=== PATIENT | female | born 1965 | race Caucasian/White ===

== ENCOUNTER 2024-02-10 23:01 | Emergency (ER) | payer OTHER ==
[~2024-02-10] VITALS: Ht 160 cm; Wt 74.8 kg
[2024-02-12] MEDS ORDERED: ATOR40TA PO (17:40)
[2024-02-12] MEDS ORDERED: EUTHYROX50 MCG PO (17:40)
[2024-02-12] MEDS ORDERED: AMLO10 (17:40)
[2024-02-12] MEDS ORDERED: Robaxin750 MG (17:41)
[2024-02-12] MEDS ORDERED: ASPI81CH (17:41)
[2024-02-12] MEDS ORDERED: SERT50 (17:41)
== END 2024-02-11 00:22 | disposition home or self-care (01) ==
LOC: ER 23:01
DX: Z00.00 Encounter for general adult medical examination without abnormal findings (principal)
CPT/HCPCS: 99282

== ENCOUNTER 2024-02-12 16:52 | Observation (INO) | payer OTHER ==
[~2024-02-12] VITALS: Ht 160 cm; Wt 74.8 kg
[2024-02-12 17:27] LABS: BASOPHILS ABSOLUTE AUTO 0.08 K/mm3 (0.00-0.23); BASOPHILS PERCENT AUTO 1 % (0-2); EOSINOPHILS ABSOLUTE AUTO 0.07 K/mm3 (0.00-0.68); EOSINOPHILS PERCENT AUTO 1 % (0-6); Hematocrit 32.9 % (33.0-51.0); Hemoglobin 10.9 g/dL (11.5-16.0); IMMATURE GRAN ABSOLUTE AUTO 0.03 K/mm3 (0.00-0.10); IMMATURE GRAN PERCENT AUTO 0 % (0-1); LYMPHOCYTES ABSOLUTE AUTO 1.58 K/mm3 (0.84-5.20); LYMPHOCYTES PERCENT AUTO 20 % (21-46); MONOCYTES PERCENT AUTO 5 % (4-13); Mean Corpuscular HGB 29.7 pg (26.0-34.0); Mean Corpuscular HGB Conc 33.1 g/dL (31.5-36.5); Mean Corpuscular Volume 90 fL (80-100); Mean Platelet Volume 10.3 fL (9.1-12.4); NEUTROPHILS ABSOLUTE AUTO 5.75 K/mm3 (1.96-9.15); NEUTROPHILS PERCENT AUTO 73 % (41-73); Platelet Count 261 K/mm3 (150-400); RDW Coefficient Variation 14.4 % (11.7-14.2); RDW Standard Deviation 47.3 fL (35.1-46.3); Red Blood Cell Count 3.67 M/mm3 (3.80-5.20); White Blood Cell Count 7.91 K/mm3 (4.00-11.30)
[2024-02-12 17:35] LABS: Source, Urine Clean Catch
[2024-02-12 17:38] LABS: Appearance, Urine Clear (Clear); Bilirubin, Urine Neg (Neg); Blood, Urine Neg (Neg); Color, Urine Yellow (P-Yellow); Glucose Qualitative, Urine Neg (Neg); Ketones, Urine Neg (Neg); Leukocyte Esterase, Urine 1+ (Neg); Nitrite, Urine Neg (Neg); Protein, Urine 1+ (Neg); Urobilinogen, Urine NORM (Normal)
[2024-02-12] MEDS ORDERED: AMLO10 PO (17:40)
[2024-02-12] MEDS ORDERED: ATOR40TA PO (17:40)
[2024-02-12] MEDS ORDERED: EUTHYROX50 MCG PO (17:40)
[2024-02-12] MEDS ORDERED: SERT50 PO (17:41)
[2024-02-12] MEDS ORDERED: Robaxin750 MG PO (17:41)
[2024-02-12] MEDS ORDERED: ASPI81CH PO (17:41)
[2024-02-12 17:47] LABS: Bacteria Many /hpf; Red Blood Cells, Urine 0-2 /hpf (0-2); Squamous Epithelial Cells Few /hpf (Few)
[2024-02-12 17:50] LABS: U Amphetamine Screen Not Detected; U Barbituate Screen Not Detected; U Benzodiazapine Screen Not Detected; U Buprenorphine Screen Not Detected; U Cannabinoids Screen Not Detected; U Cocaine Screen Not Detected; U Methadone Screen Not Detected; U Methamphetamine Screen Not Detected; U Opiates Screen Not Detected; U Oxycodone Screen Not Detected; U Phencyclidine Screen Not Detected
[2024-02-12 18:09] LABS: Acetaminophen, Random <2.0 ug/mL (10.0-30.0); Alanine Aminotransfer (ALT/SGP 38 U/L (12-78); Albumin, Blood 3.4 g/dL (3.4-5.0); Alk Phos 70 U/L (50-136); Anion Gap 13 mmol/L (3-11); Aspartate Aminotrans (AST/SGOT 35 U/L (12-37); Bilirubin, Total 0.5 mg/dL (0.1-1.0); Blood Urea Nitrogen 24 mg/dL (8-24); Bun/Creatinine Ratio 26.3 (12.0-20.0); CO2, Blood 20 mmol/L (21-32); Calcium, Blood 8.9 mg/dL (8.5-10.1); Chloride, Blood 114 mmol/L (98-108); Creatinine, Blood 0.91 mg/dL (0.40-1.00); Ethanol (Alcohol), Blood, Med <3 mg/dL; Globulin, Blood 3.3 g/dL (2.2-4.0); Glomerular Filtration Rate 74 (60-); Glucose, Blood 107 mg/dL (70-99); Potassium, Blood 3.5 mmol/L (3.5-5.5); Sodium, Blood 143 mmol/L (136-145); Total Protein, Blood 6.7 g/dL (6.4-8.2)
--- NOTE | 2024-02-14 10:23 | NUR ---
"Spiritual Care | Pt. Request Responded to the Pts. request for spiritual care. Pt. welcomed my visit, but displayed evidence of strong emotion. Pt. asked questions about the implications of suicide as it pertains to God. Listened with patient interest, empathy and a calming presence. Througout the visit the Pt. displayed waves of emotion as she shared a very sad and tragic life story. Considered matters of trace and belief. Pt. welcomed prayer so I prayed with Pt. Will remain available to Pt. while she is in our care."
[2024-02-14] MEDS ORDERED: OLANZapine ODT 10 MG Tab MM PRN (16:50)
[2024-02-14] MEDS ORDERED: HydrOXYzine Pamoate 50 MG Cap PO PRN (16:50)
[2024-02-14] MEDS ORDERED: QUEtiapine Fumarate 25 MG Tab PO PRN (16:50)
[2024-02-14] MEDS ORDERED: FLU VACC TS2024-25(6MOS UP)/PF 45 MCG/0.5 ML SYRINGE IM ONE (16:50)
[2024-02-14] MEDS ORDERED: Acetaminophen 325 MG TABLET PO PRN (16:55)
[2024-02-14] MEDS ORDERED: Ibuprofen 600 MG Tab PO PRN (16:55)
[2024-02-14] MEDS ORDERED: Melatonin 3 MG Tab PO PRN (16:55)
[2024-02-14] MEDS ORDERED: Aluminum Hydroxide 320MG/5ML 473 ML PO PRN (16:55)
[2024-02-14] MEDS ORDERED: Mirtazapine 15 MG Tab PO PRN (16:55)
[2024-02-14] MEDS ORDERED: TRAZ50 PO (18:37)
[2024-02-15] MEDS ORDERED: Multivitamins 1 Tab PO SCH (09:00)
[2024-02-17 23:59] LABS: AMITRIPTYLINE, QUANT, URN <100 ng/mL; CLOMIPRAMINE QUANT, URN <200 ng/mL; DESIPRAMINE QUANT, URN <100 ng/mL; DOXEPIN QUANT, URN <100 ng/mL; IMIPRAMINE QUANT, URN <100 ng/mL; NORCLOMIPRAMINE QUANT, URN <200 ng/mL; NORDOXEPIN QUANT, URN <100 ng/mL; NORTRIPTYLINE, QUANT, URN <100 ng/mL; PROTRIPTYLINE QUANT, URN <100 ng/mL
== END 2024-02-14 17:35 ==
LOC: ER 16:52 → EOR 16:53
PROVIDERS: ADMIT Emergency Medicine
DX: F32.A Depression, unspecified (principal); T43.212A Poisoning by selective serotonin and norepinephrine reuptake inhibitors, intentional self-harm, initial encounter; Z79.899 Other long term (current) drug therapy; Z86.73 Personal history of transient ischemic attack (TIA), and cerebral infarction without residual deficits; Z59.00 Homelessness unspecified
CPT/HCPCS: 80053; 80320; 81001; 85025; 93005; 93010; 94660; 94762; 99285-25; G0378; G0480; G0481

== ENCOUNTER 2024-05-03 15:26 | Observation (INO) | payer OTHER ==
[~2024-05-03] VITALS: Ht 160 cm; Wt 77.1 kg
[~2024-05-03 15:26] MED LIST: AMLO10 PO; ASPI81CH PO; ATOR40TA PO; EUTHYROX50 MCG PO; Robaxin750 MG PO; SERT50 PO; TRAZ50 PO
[2024-05-03 17:02] LABS: BASOPHILS ABSOLUTE AUTO 0.06 K/mm3 (0.00-0.23); BASOPHILS PERCENT AUTO 1 % (0-2); EOSINOPHILS ABSOLUTE AUTO 0.14 K/mm3 (0.00-0.68); EOSINOPHILS PERCENT AUTO 2 % (0-6); Hematocrit 36.5 % (33.0-51.0); Hemoglobin 12.3 g/dL (11.5-16.0); IMMATURE GRAN ABSOLUTE AUTO 0.02 K/mm3 (0.00-0.10); IMMATURE GRAN PERCENT AUTO 0 % (0-1); LYMPHOCYTES ABSOLUTE AUTO 2.64 K/mm3 (0.84-5.20); LYMPHOCYTES PERCENT AUTO 40 % (21-46); MONOCYTES ABSOLUTE AUTO 0.65 K/mm3 (0.16-1.47); MONOCYTES PERCENT AUTO 10 % (4-13); Mean Corpuscular HGB 29.4 pg (26.0-34.0); Mean Corpuscular HGB Conc 33.7 g/dL (31.5-36.5); Mean Corpuscular Volume 87 fL (80-100); Mean Platelet Volume 10.6 fL (9.1-12.4); NEUTROPHILS ABSOLUTE AUTO 3.16 K/mm3 (1.96-9.15); NEUTROPHILS PERCENT AUTO 47 % (41-73); Platelet Count 297 K/mm3 (150-400); RDW Coefficient Variation 12.8 % (11.7-14.2); RDW Standard Deviation 40.6 fL (35.1-46.3); Red Blood Cell Count 4.19 M/mm3 (3.80-5.20); White Blood Cell Count 6.67 K/mm3 (4.00-11.30)
[2024-05-03 17:13] LABS: Acetaminophen, Random <2.0 ug/mL (10.0-30.0); Alanine Aminotransfer (ALT/SGP 36 U/L (12-78); Albumin/Globulin Ratio 1.1 (0.8-1.8); Alk Phos 80 U/L (50-136); Anion Gap 10 mmol/L (3-11); Aspartate Aminotrans (AST/SGOT 22 U/L (12-37); Bilirubin, Total 0.4 mg/dL (0.1-1.0); Blood Urea Nitrogen 22 mg/dL (8-24); Bun/Creatinine Ratio 24.4 (12.0-20.0); CO2, Blood 25 mmol/L (21-32); Calcium, Blood 9.3 mg/dL (8.5-10.1); Chloride, Blood 109 mmol/L (98-108); Ethanol (Alcohol), Blood, Med <3 mg/dL; Globulin, Blood 3.6 g/dL (2.2-4.0); Glomerular Filtration Rate 75 (60-); Glucose, Blood 104 mg/dL (70-99); Potassium, Blood 3.9 mmol/L (3.5-5.5); Salicylate 2.7 mg/dL (2.8-20.0); Sodium, Blood 140 mmol/L (136-145); Total Protein, Blood 7.6 g/dL (6.4-8.2)
[2024-05-03 19:02] LABS: Source, Urine Clean Catch
[2024-05-03 19:12] LABS: Appearance, Urine Clear (Clear); Bilirubin, Urine Neg (Neg); Blood, Urine Neg (Neg); Color, Urine Yellow (P-Yellow); Glucose Qualitative, Urine Neg (Neg); Ketones, Urine Neg (Neg); Leukocyte Esterase, Urine 1+ (Neg); Nitrite, Urine Neg (Neg); Protein, Urine Neg (Neg); Specific Gravity, Urine 1.025 (1.003-1.022); Urobilinogen, Urine NORM (Normal)
[2024-05-03 19:19] LABS: Bacteria Rare /hpf; Red Blood Cells, Urine Not Seen /hpf (0-2); Squamous Epithelial Cells Few /hpf (Few)
[2024-05-03 19:23] LABS: U Amphetamine Screen Not Detected; U Barbituate Screen Not Detected; U Benzodiazapine Screen Not Detected; U Buprenorphine Screen Not Detected; U Cannabinoids Screen Not Detected; U Cocaine Screen Not Detected; U Methadone Screen Not Detected; U Methamphetamine Screen Not Detected; U Opiates Screen Not Detected; U Oxycodone Screen Not Detected; U Phencyclidine Screen Not Detected
[2024-05-03] MEDS ORDERED: Acetaminophen 325 MG TABLET PO PRN (19:35)
[2024-05-03] MEDS ORDERED: TraZODone HCl 50 MG Tab PO SCH (21:00)
[2024-05-03 21:13] LABS: Influenza A, PCR NEGATIVE (NEGATIVE); Influenza B, PCR NEGATIVE (NEGATIVE); Resp Syncytial Virus, PCR NEGATIVE (NEGATIVE); SARS-Cov-2 (COVID-19) PCR, MMC NEGATIVE (NEGATIVE)
[2024-05-04] MEDS ORDERED: Levothyroxine Sodium 100 MCG Vial IV SCH (06:00)
[2024-05-04] MEDS ORDERED: Aspirin 81 MG Chew PO SCH (09:00)
[2024-05-04] MEDS ORDERED: AmLODIPine Besylate 5 MG Tab PO SCH (09:00)
[2024-05-04] MEDS ORDERED: Atorvastatin 40 MG Tab PO SCH (09:00)
[2024-05-04] MEDS ORDERED: Sertraline HCl 100 MG Tab PO SCH (09:00)
[2024-05-04] MEDS ORDERED: Levothyroxine Sodium 0.05 MG Tab PO SCH (11:35)
== END 2024-05-04 13:22 | disposition home or self-care (01) ==
LOC: ER 15:26 → EOR 15:27
PROVIDERS: ADMIT Student in an Organized Health Care Education/Training Program
DX: F33.2 Major depressive disorder, recurrent severe without psychotic features (principal); R45.851 Suicidal ideations; Z79.82 Long term (current) use of aspirin; Z79.890 Hormone replacement therapy; Z79.899 Other long term (current) drug therapy; Z86.73 Personal history of transient ischemic attack (TIA), and cerebral infarction without residual deficits
CPT/HCPCS: 0241U; 80053; 80320; 81001; 81025; 85025; 93005; 93010; 99285-25; A9270; G0378; G0480

== ENCOUNTER 2024-05-14 15:45 | Observation (INO) | payer OTHER ==
[~2024-05-14] VITALS: Ht 162.6 cm; Wt 77.1 kg
[2024-05-14 17:17] LABS: BASOPHILS ABSOLUTE AUTO 0.08 K/mm3 (0.00-0.23); BASOPHILS PERCENT AUTO 1 % (0-2); EOSINOPHILS ABSOLUTE AUTO 0.13 K/mm3 (0.00-0.68); EOSINOPHILS PERCENT AUTO 2 % (0-6); Hematocrit 34.7 % (33.0-51.0); Hemoglobin 11.9 g/dL (11.5-16.0); IMMATURE GRAN ABSOLUTE AUTO 0.02 K/mm3 (0.00-0.10); IMMATURE GRAN PERCENT AUTO 0 % (0-1); LYMPHOCYTES ABSOLUTE AUTO 2.75 K/mm3 (0.84-5.20); LYMPHOCYTES PERCENT AUTO 34 % (21-46); MONOCYTES ABSOLUTE AUTO 0.73 K/mm3 (0.16-1.47); MONOCYTES PERCENT AUTO 9 % (4-13); Mean Corpuscular HGB 29.5 pg (26.0-34.0); Mean Corpuscular HGB Conc 34.3 g/dL (31.5-36.5); Mean Corpuscular Volume 86 fL (80-100); Mean Platelet Volume 10.2 fL (9.1-12.4); NEUTROPHILS ABSOLUTE AUTO 4.48 K/mm3 (1.96-9.15); NEUTROPHILS PERCENT AUTO 55 % (41-73); Platelet Count 284 K/mm3 (150-400); RDW Coefficient Variation 12.7 % (11.7-14.2); RDW Standard Deviation 39.8 fL (35.1-46.3); Red Blood Cell Count 4.04 M/mm3 (3.80-5.20); White Blood Cell Count 8.19 K/mm3 (4.00-11.30)
[2024-05-14] MEDS ORDERED: LISINOPRIL-HCT1 EACH PO (17:20)
[2024-05-14] MEDS ORDERED: HYDPAM50 PO (17:20)
[2024-05-14 17:41] LABS: Acetaminophen, Random <2.0 ug/mL (10.0-30.0); Alanine Aminotransfer (ALT/SGP 41 U/L (12-78); Albumin, Blood 3.9 g/dL (3.4-5.0); Alk Phos 86 U/L (50-136); Anion Gap 11 mmol/L (3-11); Aspartate Aminotrans (AST/SGOT 30 U/L (12-37); Bilirubin, Total 0.4 mg/dL (0.1-1.0); Blood Urea Nitrogen 31 mg/dL (8-24); Bun/Creatinine Ratio 25.2 (12.0-20.0); CO2, Blood 23 mmol/L (21-32); Calcium, Blood 9.9 mg/dL (8.5-10.1); Chloride, Blood 110 mmol/L (98-108); Creatinine, Blood 1.23 mg/dL (0.40-1.00); Ethanol (Alcohol), Blood, Med <3 mg/dL; Globulin, Blood 3.8 g/dL (2.2-4.0); Glomerular Filtration Rate 51 (60-); Glucose, Blood 104 mg/dL (70-99); Potassium, Blood 3.8 mmol/L (3.5-5.5); Sodium, Blood 140 mmol/L (136-145); Total Protein, Blood 7.7 g/dL (6.4-8.2)
[2024-05-14 18:29] LABS: Source, Urine Clean Catch
[2024-05-14 18:32] LABS: Appearance, Urine Clear (Clear); Bilirubin, Urine Neg (Neg); Blood, Urine Neg (Neg); Color, Urine Yellow (P-Yellow); Glucose Qualitative, Urine Neg (Neg); Ketones, Urine Neg (Neg); Leukocyte Esterase, Urine 2+ (Neg); Nitrite, Urine Neg (Neg); Protein, Urine 1+ (Neg); Specific Gravity, Urine 1.025 (1.003-1.022); Urobilinogen, Urine NORM (Normal)
[2024-05-14 18:47] LABS: Amorphous Light (0-Heavy); Bacteria Mod /hpf; Hyaline Casts 25-50 /lpf (0-2); Red Blood Cells, Urine 0-2 /hpf (0-2); Squamous Epithelial Cells Few /hpf (Few)
[2024-05-14 18:49] LABS: U Amphetamine Screen Not Detected; U Barbituate Screen Not Detected; U Benzodiazapine Screen Not Detected; U Buprenorphine Screen Not Detected; U Cannabinoids Screen Not Detected; U Cocaine Screen Not Detected; U Methadone Screen Not Detected; U Methamphetamine Screen Not Detected; U Opiates Screen Not Detected; U Oxycodone Screen Not Detected; U Phencyclidine Screen Not Detected
[2024-05-14] MEDS ORDERED: Atorvastatin 10 MG Tab PO SCH (21:00)
[2024-05-14] MEDS ORDERED: TraZODone HCl 50 MG Tab PO SCH (21:00)
[2024-05-14] MEDS ORDERED: Acetaminophen 325 MG TABLET PO PRN (22:20)
[2024-05-15] MEDS ORDERED: Levothyroxine Sodium 0.05 MG Tab PO SCH (06:00)
[2024-05-15] MEDS ORDERED: Sertraline HCl 50 MG Tab PO SCH (09:00)
[2024-05-15] MEDS ORDERED: Aspirin 81 MG Chew PO SCH (09:00)
[2024-05-15] MEDS ORDERED: AmLODIPine Besylate 5 MG Tab PO SCH (09:00)
[2024-05-15] MEDS ORDERED: HyDROXyzine HCl 25 MG Tab PO SCH (09:00)
[2024-05-15 10:58] LABS: Influenza A, PCR NEGATIVE (NEGATIVE); Influenza B, PCR NEGATIVE (NEGATIVE); Resp Syncytial Virus, PCR NEGATIVE (NEGATIVE); SARS-Cov-2 (COVID-19) PCR, MMC NEGATIVE (NEGATIVE)
== END 2024-05-15 13:10 | disposition other institution (70) ==
LOC: ER 15:45 → EOR 15:46
PROVIDERS: Physician Assistant; ADMIT Student in an Organized Health Care Education/Training Program
DX: F32.9 Major depressive disorder, single episode, unspecified (principal); R45.851 Suicidal ideations; Z79.899 Other long term (current) drug therapy; Z86.73 Personal history of transient ischemic attack (TIA), and cerebral infarction without residual deficits
CPT/HCPCS: 0241U; 80053; 80320; 81001; 85025; 87086; 93005; 93010; 99285-25; A9270; G0378; G0480

== ENCOUNTER 2024-05-15 09:22 | Inpatient (IN) | payer OTHER ==
[~2024-05-15 09:22] MED LIST changes: +HYDPAM50 PO; +LISINOPRIL-HCT1 EACH PO
[2024-05-15] MEDS ORDERED: FLU VACC TS2024-25(6MOS UP)/PF 45 MCG/0.5 ML SYRINGE IM SCH (13:30)
[2024-05-15] MEDS ORDERED: Melatonin 3 MG Tab PO PRN (13:35)
[2024-05-15] MEDS ORDERED: Calcium Carbonate 500 MG Tab Chew PO PRN (13:35)
[2024-05-15] MEDS ORDERED: Acetaminophen 325 MG TABLET PO PRN (13:35)
[2024-05-15] MEDS ORDERED: Polyethylene Glycol 3350 17 gm PO PRN (13:35)
[2024-05-15] MEDS ORDERED: Ondansetron 4 MG SoluTab MM PRN (13:35)
[2024-05-15] MEDS ORDERED: TraZODone HCl 50 MG Tab PO PRN (13:35)
[2024-05-15] MEDS ORDERED: Aluminum Hydroxide 320MG/5ML 473 ML PO PRN (13:35)
[2024-05-15] MEDS ORDERED: Ibuprofen 600 MG Tab PO PRN (13:40)
[2024-05-15] MEDS ORDERED: OLANZapine ODT 10 MG Tab MM PRN (13:40)
[2024-05-15] MEDS ORDERED: HydrOXYzine Pamoate 50 MG Cap PO PRN (13:40)
--- NOTE | 2024-05-15 17:15 | NUR ---
ADMISSION NOTE: REPORT TAKEN FROM GIL IN THE ER. PT BY REPORT IS HAVING CONTINUED THOUGHTS AND INTENT OF HOW TO END HER LIFE. SHE TALKED ABOUT RUNNING INTO TRAFFIC BUT DIDN'T WANT TO HARM SOMONE ELSE. PT ARRIVED ON THE UNIT AT 13:07. HER SKIN CHECK WAS DONE BY TWO RN'S, SKIN APPEARED CLEAR OF ANY WOUNDS. SHE WAS ADMITTED AND ORIENTED TO THE UNIT. SHE REPORTED MODERATE PAIN TO HER LOWER BACK AND ADMISSION WAS FINISHED AT THE BEDSIDE. SHE REPORTED, "MY DAUGHTER IN 2007 AND I WAS SO BUSY TAKING CARE OF EVERYONE ELSE THAT I DIDN'T DO MY OWN GRIEVING. [place] [facility] [place] TR[place] TO GET ME INTO A BEREVEMENT GROUP." PT IS UNHOUSED AT THIS TIME, SHE HAS "[place] [facility] WORK[place] [facility]ING...BUT THAT TAKES TIME." PT RESTED IN BED FOR SEVERAL HOURS, SHE ASKED FOR MEDICATION FOR 8/10w BACK PAIN AND RECIEVED ADVIL 600MG AT 16:55...IT WAS NOT EFFECTIVE. TYLENOL WAS OFFERED AND DECLINED AT THIS TIME. SHE IS PRESENTLY IN THE DINING ROOM FINISHING DINNER.
[2024-05-15 17:42] VITALS: BP 120/87
--- NOTE | 2024-05-15 18:18 | NUR ---
PT IS PRESENTLY WATCHING A MOVIE WITH PEERS. SHE HASN'T ASKED FOR PAIN MED YET AND IS ON 15 MINUTE SAFETY CHECKS PER UNIT SAFETY PROTOCOL.
[2024-05-15 20:52] VITALS: BP 107/93
--- NOTE | 2024-05-16 05:49 | NUR ---
NOC SHIFT SUMMARY Visibly in milieu watching movie with peers in the evening. Ate snack. Minimal engagement in conversation, but cooperative. PRNs given at HS for sleep/anxiety per pt request (trazodone, melatonin, hydroxyzine). No scheduled meds ordered at HS currently. Denies new concerns since admit on previous shift. Sleeping overnight without issue.
[2024-05-16 07:35] LABS: CHOL/HDL RATIO 2.2; Cholesterol 155 mg/dL (50-200); HDL Cholesterol 72 mg/dL (>39); LDL/HDL RATIO 0.9; Low Density Lipoprotein Chol 66 mg/dL (0-110); Triglycerides 85 mg/dL (30-160); Very Low Density Lipoprot Chol 17 mg/dL (6-32)
[2024-05-16] MEDS ORDERED: Multivitamins 1 Tab PO SCH (09:00)
[2024-05-16] MEDS ORDERED: AmLODIPine Besylate 5 MG Tab PO SCH (09:00)
[2024-05-16] MEDS ORDERED: Aspirin 81 MG Chew PO SCH (09:00)
[2024-05-16] MEDS ORDERED: Sertraline HCl 100 MG Tab PO SCH (09:00)
[2024-05-16] MEDS ORDERED: Atorvastatin 40 MG Tab PO SCH (09:00)
[2024-05-16] MEDS ORDERED: Lisinopril 20 MG Tab PO SCH (09:00)
[2024-05-16 12:20] VITALS: BP 110/70
--- NOTE | 2024-05-16 16:55 | NUR ---
SHIFT SUMMARY PT STS SHE SLEPT WELL LAST NIGHT, UP AND TO ALL MEALS TODAY, SNACKS AND GROUP SESSIONS. SHE HAD A VISIT TODAY [facility] A [facility] RE[facility] AND A REP FROM [facility]. PT SIGNED A RELEASE OF INFORMATION FOR EACH ENTITY, THEY ARE IN HER CHART. THEY EACH SAID THEY WOULD REACH OUT AGAIN ON SUNDAY THEY ARE CLOSED ON SUNDAY FOR THE HOLIDAY. PT HAS DENIED SI/SI/AVH TODAY, SPENT THE LATE AFTERNOON WORKING ON PUZZLES IN THE GROUP ROOM WITH THE [facility] ON STAFF TODAY. ONGOING, CONTINUED Q15 MIN CHECKS TO ENSURE PT SAFETY
[2024-05-16 22:06] VITALS: BP 128/80
--- NOTE | 2024-05-17 06:34 | NUR ---
NOC SHIFT SUMMARY Cooperative, pleasant. Mild confusion noted at times. Social with female peer and watching movies in evening. Denies new concerns with mood. Still reporting chronic back pain, but available PRNs not effective. PRNs given for sleep/anxiety (trazodone, melatonin, hydroxyzine). Depressed with congruent flat affect. Observed to be sleeping overnight without issue.
[2024-05-17 08:01] VITALS: BP 110/74
--- NOTE | 2024-05-17 17:56 | NUR ---
SHIFT SUMMARY: PT ALERT, ORIENTED AND COOPERATIVE. ACTIVE IN UNIT MILIEU, SPENT TIME IN THE DAY ROOM WATCHING TV AND PUTTING TOGETHER PUZZLE. PT TALKATIVE WITH STAFF AND PEERS THROUGH OUT THE DAY.
[2024-05-17 20:57] VITALS: BP 129/96
--- NOTE | 2024-05-18 07:14 | NUR ---
NOC SHIFT SUMMARY No major changes noted while pt was awake in evening. Received the same PRN meds as previous 2 nights as these have been effective for sleep. Observed to be sleeping well overnight without issue. Active participation with unit activities and present in milieu until end of evening, watching movie with peer. Denies new needs/concerns, no active SI.
[2024-05-18 08:01] VITALS: BP 116/75
--- NOTE | 2024-05-18 17:36 | NUR ---
SHIFT SUMMARY: PT ALERT, ORIENTED AND COOPERATIVE WITH CARE. COMPLIANT WITH MEDICATIONS. PT DENIED SI, HI AND AVH. PT PRESENT ON THE UNIT AND ENGAGED IN MILIEU. SPENT TIME IN THE DAY ROOM WATCHING TV, PUTTING TOGETHER A PUZZLE AND VISITING WITH STAFF AND PEERS.
[2024-05-18 22:40] VITALS: BP 113/72
[2024-05-18] MEDS ORDERED: Menthol 1 EA Adhesive Patch TOP PRN (23:25)
--- NOTE | 2024-05-19 04:48 | NUR ---
Patient is alert and oriented, pleasant and cooperative with care. Spent all evening in the milieu working on a puzzle and attended snack time. Asked for an Icy Hot patch for her mid back, but unfortunately was sleeping by the time order was received and ready. No SI,HI or AVH noted on assessment prior to HS. Will continue close monitoring every 15 minutes for comfort and safety
--- NOTE | 2024-05-19 17:40 | NUR ---
SHIFT SUMMARY PT A/O X4; PLEASANT AND COOPERATIVE WITH CARE. SHE DENIES SI, HI, OR ANY HALLUCINATIONS. PT PARTICIPATED IN ALL GROUPS BUT MORNING MOVEMENT GROUP. SHE NEEDED ENCOURAGEMENT TO PARTICIPATE AND C/O BACK PAIN. PAIN TREATED PER EMR WITH GOOD EFFECT. PT'S MAIN CONCERN IS HOUSING AND SHE HAS WORKED WITH THE [facility] IN THE [facility]. PERSONS FROM THE [facility] TO MEET WITH THE PATIENT TOMORROW. PT MONITORED VIA Q15 ROUNDING FOR SAFETY.
[2024-05-19 21:15] VITALS: BP 113/67
--- NOTE | 2024-05-20 04:17 | NUR ---
Patient is alert and oriented times 4. very pleasant and cooperative with both staff and peers. Evening assessment indicated no SI,HI or AVHPatient out participating in the milieu till lights out. Errol Rogers applied to low back in addition to advil given for relief of pain. Will continue close observation every 15 minutes for safety and comfort.
[2024-05-20 12:27] VITALS: BP 123/65
--- NOTE | 2024-05-20 13:59 | NUR ---
SEE HARD CHART FOR DOWNTIME CHARTING BETWEEN [phone]
--- NOTE | 2024-05-20 18:25 | NUR ---
SHIFT SUMMARY PT A/O X4; PLEASANT AND COOPERATIVE WITH CARE. PT DENIES SI, HI, OR ANY HALLUCINATIONS. HER AFFECT IS FLAT AND SHE EXPRESSED WORRY ABOUT HER DAUGHTER'S ASHES IN HER CAR. PT'S CAR IS CURRENTLY [place]. PT SPOKE WITH PERSON FROM THE [place] ON THE PHONE AND SHE WAS GIVEN A NUMBER TO CALL. PT TO POTENTIALLY DISCHARGE ON SUNDAY. SHE PARTICIPATES IN ALL GROUPS AND MEALS AND SHE LIKES TO DO PUZZLES ON THE [employer]. MEDICATED PER EMR FOR LOW BACK PAIN. PT CONTINUES TO BE MONITORED VIA Q15 ROUNDING FOR SAFETY.
[2024-05-20] MEDS ORDERED: Methyl Salicylate/Menth/Camph 57 GM TUBE TOP PRN (22:15)
[2024-05-21 00:05] VITALS: BP 126/79
--- NOTE | 2024-05-21 05:29 | NUR ---
Patient is alert and oriented, and pleasant and cooperative with both staff and peers. She continues to have a somewhat flat effect, but much improved from previous days. She has no SI,HI or AVH when asked on assessment prior to bedtime. Still concerned about housing after discharge. Will continue close monitoring every 15 minutes for safety and comfort.
[2024-05-21 08:26] VITALS: BP 123/66
--- NOTE | 2024-05-21 17:23 | NUR ---
SHIFT SUMMARY: PT ALERT, ORIENTED AND COOPERATIVE. COMPLIANT WITH CARE AND MEDICATIONS. DENIED SI, HI AND AVH. PARTICIPATED IN UNIT MILIEU, WATCHING TV AND PUTTING TOGETHER PUZZLES. ATTENDED GROUPS AND MEALS.
[2024-05-21 21:04] VITALS: BP 125/75
--- NOTE | 2024-05-22 04:31 | NUR ---
Patient has slept well all night . She did require Advil just prior to bed last night for her low back pain. She is alert and oriented with a somewhat flat affect. She denies SI,HI or AVTH at time of assessment. Will continue close observations every 15 minutes for safety and comfort
[2024-05-22] MEDS ORDERED: Levothyroxine Sodium 0.05 MG Tab PO SCH (06:00)
[2024-05-22 08:16] VITALS: BP 118/78
--- NOTE | 2024-05-22 16:42 | NUR ---
SHIFT SUMMARY: PT ALERT, ORIENTED AND COOPERATIVE. COMPLIANT WITH MEDICATIONS. PT UP FOR BREAKFAST AND THEN RETURNED TO BED. SLEPT MOST OF THE MORNING. UP FOR LUNCH AND AFTERNOON GROUPS. DENIED SI, HI AND AVH. PLAN FOR POSSIBLE DISCHARGE 05/23.
[2024-05-22 22:30] VITALS: BP 129/78
--- NOTE | 2024-05-23 03:50 | NUR ---
SHIFT SUMMARY: ASSUMED CARE FROM PRIOR SHIFT. PATIENT IS A/OX4, ABLE TO VOICE NEEDS AND HAVE MEANINGFUL CONVERSATIONS. SHE IS A LITTLE ANXIOUS ABOUT DISCHARGING. SHE IS COMPLIANT WITH MEDICATIONS, ASSESSMENT AND CARE. SHE CURRENTLY DENIES SI, VH, AH AND TH. SHE SOCIALIZES WITH OTHER PATIENTS AND STAFF APPROPRIATELY. I WILL GIVE AM STAFF RESOURCES FOR FREE BEREAVEMENT/GRIEF SUPPORT COUNSELING AND COPING SUPPORT TO ASSIST IN THE OF HER DAUGHTER. SHE GOES TO SLEEP WITHOUT ENCOURAGMENT. SHE DOES SLEEP THROUGH THE NIGHT. NO NOTED BEHAVIORS OR ISSUES. WE WILL CONTINUE 15 MIN SAFETY AND COMFORT CHECKS.
--- NOTE | 2024-05-23 13:06 | NUR ---
DISCHARE NOTE: PT STATES UNDERTANDING OF D/C TO [facility]. MEDICATIONS FAXED TO [facility]. BELONGINGS RETURNED TO PT AND DOCUMENTED BY [facility]. TRANSPORTATION ARRANGED WITH [facility]. PT AMBULATED OUT OF FACILITY WITH STEADY GAIT AND BELONGINGS IN NAD.
== END 2024-05-23 13:06 | disposition home or self-care (01) | DRG 885 ==
LOC: BHU 09:22
PROVIDERS: ADMIT Student in an Organized Health Care Education/Training Program
DX: F33.0 Major depressive disorder, recurrent, mild (principal); R45.851 Suicidal ideations; I10 Essential (primary) hypertension; E78.5 Hyperlipidemia, unspecified; Z87.891 Personal history of nicotine dependence; Z79.899 Other long term (current) drug therapy; Z79.82 Long term (current) use of aspirin; Z79.890 Hormone replacement therapy
CPT/HCPCS: 36415; 80061; 83036; 84443; A9270

== ENCOUNTER 2024-09-06 23:45 | Emergency (ER) | payer OTHER ==
[~2024-09-06] VITALS: Ht 162.6 cm; Wt 81.7 kg
[2024-09-07] MEDS ORDERED: Acetaminophen 500 MG Tab PO ONE (00:15)
[2024-09-07] MEDS ORDERED: Ketorolac Tromethamine 15mg Vial IM ONE (00:15)
[2024-09-07] MEDS ORDERED: ACET500 PO (03:42)
[2024-09-07] MEDS ORDERED: IBUP600 PO (03:42)
== END 2024-09-07 04:44 | disposition home or self-care (01) ==
LOC: ER 23:45
DX: R07.81 Pleurodynia (principal); Z86.73 Personal history of transient ischemic attack (TIA), and cerebral infarction without residual deficits
CPT/HCPCS: 71250; 82947; 96372; 99284-25; A9270; J1885

== ENCOUNTER 2024-09-12 12:53 | Inpatient (IN) | payer OTHER ==
[~2024-09-12] VITALS: Ht 160 cm; Wt 77.6 kg
[~2024-09-12 12:53] MED LIST changes: +ACET500 PO; +IBUP600 PO
[2024-09-12 13:54] LABS: BASOPHILS ABSOLUTE AUTO 0.08 K/mm3 (0.00-0.23); BASOPHILS PERCENT AUTO 1 % (0-2); EOSINOPHILS ABSOLUTE AUTO 0.24 K/mm3 (0.00-0.68); EOSINOPHILS PERCENT AUTO 3 % (0-6); Hematocrit 36.8 % (33.0-51.0); Hemoglobin 12.3 g/dL (11.5-16.0); IMMATURE GRAN ABSOLUTE AUTO 0.01 K/mm3 (0.00-0.10); IMMATURE GRAN PERCENT AUTO 0 % (0-1); LYMPHOCYTES ABSOLUTE AUTO 2.59 K/mm3 (0.84-5.20); LYMPHOCYTES PERCENT AUTO 33 % (21-46); MONOCYTES ABSOLUTE AUTO 0.72 K/mm3 (0.16-1.47); MONOCYTES PERCENT AUTO 9 % (4-13); Mean Corpuscular HGB 29.1 pg (26.0-34.0); Mean Corpuscular HGB Conc 33.4 g/dL (31.5-36.5); Mean Corpuscular Volume 87 fL (80-100); Mean Platelet Volume 10.4 fL (9.1-12.4); NEUTROPHILS ABSOLUTE AUTO 4.26 K/mm3 (1.96-9.15); NEUTROPHILS PERCENT AUTO 54 % (41-73); Platelet Count 289 K/mm3 (150-400); RDW Coefficient Variation 13.3 % (11.7-14.2); RDW Standard Deviation 42.3 fL (35.1-46.3); Red Blood Cell Count 4.23 M/mm3 (3.80-5.20)
[2024-09-12 14:17] LABS: Albumin/Globulin Ratio 1.1 (0.8-1.8); Bilirubin, Total 0.4 mg/dL (0.1-1.0); Bun/Creatinine Ratio 24.8 (12.0-20.0); Creatinine, Blood 1.13 mg/dL (0.40-1.00); Globulin, Blood 3.5 g/dL (2.2-4.0); Potassium, Blood 3.9 mmol/L (3.5-5.5); Total Protein, Blood 7.5 g/dL (6.4-8.2)
[2024-09-12] MEDS ORDERED: Clopidogrel Bisulfate 75 MG Tab PO ONE (15:50)
[2024-09-12 16:00] LABS: Source, Urine Clean Catch
[2024-09-12 16:23] LABS: Appearance, Urine Clear (Clear); Bilirubin, Urine Neg (Neg); Blood, Urine Neg (Neg); Color, Urine Yellow (P-Yellow); Glucose Qualitative, Urine Neg (Neg); Ketones, Urine Neg (Neg); Leukocyte Esterase, Urine 2+ (Neg); Nitrite, Urine Neg (Neg); Protein, Urine 2+ (Neg); Urobilinogen, Urine NORM (Normal)
[2024-09-12 16:30] LABS: Bacteria Mod /hpf; Red Blood Cells, Urine 0-2 /hpf (0-2); Squamous Epithelial Cells Few /hpf (Few)
[2024-09-12 18:38] VITALS: BP 122/73
[2024-09-12] MEDS ORDERED: ACET500 PO (18:41)
[2024-09-12] MEDS ORDERED: Aspir 8181 MG PO (18:42)
[2024-09-12] MEDS ORDERED: HYDPAM50 PO (18:43)
[2024-09-12] MEDS ORDERED: EUTHYROX50 MCG PO (18:44)
[2024-09-12] MEDS ORDERED: MELA3 PO (18:44)
[2024-09-12] MEDS ORDERED: ARTIFICIAL TEAR15 M7 BOTHEYES (18:45)
--- NOTE | 2024-09-12 19:04 | NUR ---
ADMISSION NOTE PATIENT ADMITTED TO ROOM 354, A/OX4, ABLE TO MAKE NEEDS KNOWN. PLEASANT AND COOPERATIVE WITH CARE. 1 PERSON ASSIST, PATIENT WITH POOR COORDINATION, HIGH FALL RISK, BED ALARM IN PLACE. ADMISSION DOCUMENTATION COMPLETED. TELEMTRY IN PLACE, NORMAL SINUS 80s. Q8H NEURO CHECKS. COMPLAINING FO LEFT ARM NUMBNESS AND TINGLING, STATES "DOES NOT FUNCTION RIGHT". NO OTHER CONCERNS AT THIS TIME.
[2024-09-13 00:08] VITALS: BP 120/91
[2024-09-13] MEDS ORDERED: Acetaminophen 325 MG TABLET PO PRN (00:55)
[2024-09-13] MEDS ORDERED: TraZODone HCl 50 MG Tab PO SCH ×2 (01:15→21:00)
[2024-09-13] MEDS ORDERED: Melatonin 3 MG Tab PO SCH ×2 (01:15→21:00)
[2024-09-13 03:48] VITALS: BP 122/71
--- NOTE | 2024-09-13 04:59 | NUR ---
CONTRACT POST OFFICE CLERK SUMMARY: PT A&O X4. NEURO ASSESSMENTS Q8H. MAKES NEEDS KNOWN. NEW ORDERS RECEIVED FOR TYLENOL 650MG PO Q 6HRS PRN PAIN, MELATONIN 3MG PO Q HS SLEEP, TRAZODONE 50MG PO Q HS SLEEP. PT RECEIVED ABOVE MEDICATIONS; EFFECTIVE. PT ? PAIN TO IV IN L AC, IV D/C AND NEW 22G PLACED IN L WRIST. PT HIGH FALL RISK, BED ALARM IN PLACE. TELE IN PLACE: NSR 70 S. PT INDEPENDENT WITH BED MOBILITY. BED IN LOWEST POSITION. CALL LIGHT IN REACH. CARES ONGOING ORDERED.
[2024-09-13 05:55] LABS: CHOL/HDL RATIO 2.5; Cholesterol 170 mg/dL (50-200); HDL Cholesterol 67 mg/dL (>39); LDL/HDL RATIO 1.3; Low Density Lipoprotein Chol 86 mg/dL (0-110); Triglycerides 86 mg/dL (30-160); Very Low Density Lipoprot Chol 17 mg/dL (6-32)
[2024-09-13] MEDS ORDERED: Levothyroxine Sodium 0.05 MG Tab PO SCH (06:00)
[2024-09-13 07:55] VITALS: BP 102/62
[2024-09-13] MEDS ORDERED: Lisinopril 20 MG Tab PO SCH (09:00)
[2024-09-13] MEDS ORDERED: Enoxaparin 40 MG/0.4 ML SYR SC SCH (09:00)
[2024-09-13] MEDS ORDERED: HydroCHLOROthiazide 25 mg Tab PO SCH (09:00)
[2024-09-13] MEDS ORDERED: Sertraline HCl 100 MG Tab PO SCH (09:00)
[2024-09-13] MEDS ORDERED: Atorvastatin 40 MG Tab PO SCH (09:00)
[2024-09-13] MEDS ORDERED: buPROPion HCL 150 MG TAB.SR.12H PO SCH (09:00)
[2024-09-13] MEDS ORDERED: AmLODIPine Besylate 5 MG Tab PO SCH (09:00)
[2024-09-13] MEDS ORDERED: Clopidogrel Bisulfate 75 MG Tab PO SCH (09:00)
[2024-09-13] MEDS ORDERED: CefTRIAXone Sodium 1,000 MG in NS 100 ML IV SCH (13:01)
[2024-09-13 15:13] VITALS: BP 115/82
--- NOTE | 2024-09-13 16:38 | NUR ---
SHIFT SUMMARY PT IS A/OX4. SBA TO THE BATHROOM, ATAXIA NOTED. NO ACUTE EVENTS THROUGHOUT THIS SHIFT. ON TELE RUNNING NORMAL SINUS RYTHYM IN THE 60'S. STARTED ON IV ANTIBIOTICS. PT IS PLEASANT AND COOPERATIVE WITH CARE AND CALLS APPROPRIATELY USING THE CALL LIGHT.
[2024-09-13 19:27] VITALS: BP 123/83
[2024-09-13 23:48] VITALS: BP 122/74
--- NOTE | 2024-09-14 04:01 | NUR ---
WIRE ANNEALER SUMMARY: PT A&O X4. NEURO ASSESSMENTS Q8H. MAKES NEEDS KNOWN. MEDICATED X1 FOR BACK PAIN PER EMAR ORDERS; EFFECTIVE. TELE IN PLACE: SR 70'S. PT INDEPENDENT WITH BED MOBILITY. PT USING BSC DURING HS. NO ACUTE EVENTS T/O SHIFT. BED IN LOWEST POSITION. CALL LIGHT IN REACH. CARES ONGOING ORDERED.
[2024-09-14 04:17] VITALS: BP 122/69
[2024-09-14 08:26] VITALS: BP 127/82
[2024-09-14 15:22] VITALS: BP 124/81
--- NOTE | 2024-09-14 16:08 | NUR ---
SHIFT SUMMARY PT IS A/OX4. 1 PERSON ASSIST WITH FWW TO BATHROOM D/T WEAKNESS AND AN UNSTEADY GAIT. NO ACUTE CHANGES THROUGHOUT THIS SHIFT. ON TELE RUNNING NORMAL SINUS RYTHYM IN THE 60'S. CONTINUING IV ANTIBIOTICS. PT IS PLEASANT AND COOOPERATIVE WITH CARE AND CALLS APPROPRIATELY USING THE CALL LIGHT.
[2024-09-14 19:16] VITALS: BP 135/72
[2024-09-14 23:25] VITALS: BP 125/52
--- NOTE | 2024-09-15 03:05 | NUR ---
PAMPHLET DISTRIBUTOR SUMMARY: PT A&O X4. NO ACUTE EVENTS T/O SHIFT. PT INDEPENDENT WITH BED MOBILTY AND TOILETING T/O NIGHT. TELE IN PLACE: SR 80'S. PLAN IS TO D/C TO [facility]. BED IN LOWEST POSITION. CALL LIGHT IN REACH. CARES ONGOING ORDERED.
[2024-09-15 04:14] VITALS: BP 131/76
[2024-09-15 05:56] LABS: Bun/Creatinine Ratio 18.3 (12.0-20.0); Calcium, Blood 9.2 mg/dL (8.5-10.1); Creatinine, Blood 1.15 mg/dL (0.40-1.00); Potassium, Blood 3.7 mmol/L (3.5-5.5)
[2024-09-15 07:37] VITALS: BP 123/79
[2024-09-15] MEDS ORDERED: NS 250 ML IV PRN (08:35)
[2024-09-15 14:43] VITALS: BP 129/84
[2024-09-15 15:07] LABS: CORONAVIRUS COVID-19 AG Negative (NEGATIVE)
--- NOTE | 2024-09-15 16:34 | NUR ---
Uponn receiving a referral for spiritual care, I visited the patient. She talks at length about her life at the [place], about her medical history and currnet condition and and about her frustrations with falls, pain and yet another recovery. She talks about her spiritual journey and asks for a Bible (which I later retrieved for her and she received with great appreciation). We discuss the mental/emotional struggles of this season and also the many positives that she is able to see. I provided therapeutic listening and prayer. The patient responded well and showed signs of greater peace. I will continue to remain available .
--- NOTE | 2024-09-15 17:21 | NUR ---
SOCIAL WORK CAME TO SEE PATIENT TODAY. DISCHARGING HOME TO [facility] TOMORROW. THIS PATIENT IS PLEASANT, PAINFUL WHEN TOUCHED LIGHTLY AT THE LEFT SPINE T11. THE PATIENT REPORTED TO ME SHE FELL AND LANDED ON HER WALKER 10 DAYS PRIOR, SHE DOES HAVE A T11 RIB FRACTURE. SHE CONTINUES TO STRUGGLE WITH DRY MOUTH AND WAS GIVEN BALLARDS MOUTH MOISTURIZER, WHICH SHE STATED HELPED A LOT. SHE WAS ALSO VISITED BY THE GLASSBLOWER TODAY. HER DIET IS NOW SOFT AND BITE-SIZED, SHE SHOULD NOT USE STRAWS DUE TO CHOKING RISK. MIN ASSIST TRANSFER TO BEDSIDE COMMODE. BED IN LOWEST POISTION. SHE REMAINS A&O X4, HAS CALL LIGHT WITHIN REACH.
[2024-09-15 19:42] VITALS: BP 117/79
[2024-09-16 03:22] VITALS: BP 101/61
--- NOTE | 2024-09-16 05:15 | NUR ---
SLEEVE FIXER SUMMARY: PT A&O X4. NO ACUTE EVENTS T/O SHIFT. PT INDEPENDENT WITH BED MOBILTY AND TOILETING T/O NIGHT. TELE IN PLACE: SR 80'S. PLAN IS TO D/C TO [facility] TODAY AT 10AM. BED IN LOWEST POSITION. CALL LIGHT IN REACH. CARES ONGOING ORDERED.
[2024-09-16 05:49] LABS: Bun/Creatinine Ratio 15.1 (12.0-20.0); Calcium, Blood 9.1 mg/dL (8.5-10.1); Creatinine, Blood 1.19 mg/dL (0.40-1.00); Potassium, Blood 3.7 mmol/L (3.5-5.5)
[2024-09-16 07:59] VITALS: BP 127/62
[2024-09-16] MEDS ORDERED: Lidocaine 4% 1 Patch TOP SCH (11:00)
[2024-09-16 12:08] VITALS: BP 113/61
[2024-09-16] MEDS ORDERED: CLOP75 PO (12:14)
[2024-09-16] MEDS ORDERED: BUPR150ER PO (12:14)
[2024-09-16] MEDS ORDERED: Cefpodoxime Pr100 MG PO (12:15)
--- NOTE | 2024-09-16 13:10 | NUR ---
DISCHARGED WITH TRANSPORT TO [facility]. NOTIFIED ISELA AT [facility] THAT PT IS IN TRANSPORT TO THEIR FACILITY
--- NOTE | 2024-09-16 13:31 | NUR ---
DISCHARGE 1255 REPORT GIVEN TO ISELA PARSON OF [place]. PT WAS DC'D WHILE THIS RN WAS ON LUNCH BREAK. JOSE E PARSON DC'D PT TO TRANSPORT WITH BELONGINGS IN HAND.
== END 2024-09-16 13:20 | DRG 65 ==
LOC: ER 12:53 → MEDS 17:01
PROVIDERS: Emergency Medicine; Hospitalist; Physician Assistant; Student in an Organized Health Care Education/Training Program; ADMIT Internal Medicine
DX: I63.81 Other cerebral infarction due to occlusion or stenosis of small artery (principal); N17.9 Acute kidney failure, unspecified; N39.0 Urinary tract infection, site not specified; I12.9 Hypertensive chronic kidney disease with stage 1 through stage 4 chronic kidney disease, or unspecified chronic kidney disease; N18.9 Chronic kidney disease, unspecified; E03.9 Hypothyroidism, unspecified; E78.5 Hyperlipidemia, unspecified; R35.0 Frequency of micturition; Z66 Do not resuscitate; R27.0 Ataxia, unspecified; R47.02 Dysphasia; Z79.890 Hormone replacement therapy; B96.20 Unspecified Escherichia coli [E. coli] as the cause of diseases classified elsewhere; Z79.899 Other long term (current) drug therapy; R29.701 NIHSS score 1
CPT/HCPCS: 36415; 74230; 80048; 80053; 80061; 81001; 82947; 84443; 85025; 87077; 87086; 87186; 87426-QW; 92526; 92610; 92611; 93005; 93010; 93246; 93306; 97110; 97116; 97162; 97165; 97530; 97535; 99285-25; A9270; J0696; J1650; J7050